=== PATIENT | male | born 1960 | race Caucasian/White ===

== ENCOUNTER → 2019-03-01 | Outpatient (CLI) | payer BC | END | disposition home or self-care (01) | LOC: LABWHC1 10:54 | PROVIDERS: ATTEND Urology | DX: R97.20 Elevated prostate specific antigen [PSA] (principal) | CPT/HCPCS: 36415; 84153 ==

== ENCOUNTER → 2019-03-06 | Outpatient (CLI) | payer BC ==
--- NOTE | 2019-03-06 23:01 | CTL ---
EXAMINATION TYPE: CT Low Dose Lung DATE OF EXAM ORDERED: 03/06/2019 HISTORY: 58-year-old male Personal history of tobacco use . Lung cancer screening CT DLP: 89.[address] CTDI: 2.60 mGy Automated exposure control for dose reduction was used. SCREENING VISIT: Baseline COMPARISON: None TECHNIQUE: Low dose computed tomography scan was performed through the chest at 1 mm thick sections a nd reconstructed images in the coronal/sagittal plane. Additional coronal MIP reconstruction performe d. CT DIAGNOSTIC QUALITY: Satisfactory FINDINGS: Heart normal size with small anterior basilar pericardial fluid. Borderline ectasia aortic root at 3.5 cm. Conventional arch vessel branching anatomy. No thoracic lymphadenopathy by CT size criteria. Scattered mild centrilobular emphysema. No consolidation or pleural effusion. Some strandy atelectasi s at the right midlung. Additional minimal strandy atelectasis inferior lingula. Visualized upper abdomen shows a 3.4 cm lateral right renal cyst only partially visualized. Bones: Mild to moderate multilevel degenerative disc disease. IMPRESSION: 1. Lung RADS 1 - negative. No suspicious pulmonary nodules. 2. Very mild emphysematous change. Scattered strandy areas of atelectasis. RECOMMENDATION: 1. Continue annual low-dose lung cancer screening CT. 2. Smoking cessation. FOLLOW UP CT CHEST RECOMMENDATION: [address] LUNG RAD: Lung-Rad 1 Negative
== END | disposition home or self-care (01) ==
LOC: RADCTMAIN 07:31
PROVIDERS: ATTEND Internal Medicine Hematology & Oncology
DX: J43.9 Emphysema, unspecified (principal); J98.11 Atelectasis; C7A.021 Malignant carcinoid tumor of the cecum; Z87.891 Personal history of nicotine dependence

== ENCOUNTER → 2020-02-14 | Outpatient (CLI) | payer BC ==
--- NOTE | 2020-02-14 13:46 | CT ---
EXAMINATION TYPE: CT ChestAbdPelvis w con DATE OF EXAM: 02/14/2020 COMPARISON: CT chest 03/06/2019 HISTORY: Carcinoid tumor. CT DLP: 642.7 mGycm Automated exposure control for dose reduction was used. CONTRAST: CT scan of the chest, abdomen and pelvis is performed with Oral Contrast and with IV Contrast, patien t injected with 100 mL of Isovue M300. FINDINGS: Small anterior abdominal wall hernia present and supraumbilical location containing fat. LUNGS: The lungs are grossly clear, there is no concerning parenchymal mass or nodule identified. T here is no pleural effusion or pneumothorax seen. The tracheobronchial tree is patent. MEDIASTINUM: There are no greater than 1 cm hilar or mediastinal lymph nodes. No pericardial effusi on is seen. AORTA: No significant abnormality is seen. OTHER: No additional significant abnormality is seen. LIVER/GB: No significant abnormality is appreciated. PANCREAS: No significant abnormality is seen. SPLEEN: No significant abnormality is seen. ADRENALS: No significant abnormality is seen. KIDNEYS: Cortical cyst is associated with the right kidney upper pole measuring approximately 3.5 cm in exophytic location laterally. REPRODUCTIVE ORGANS: Prostate shows some associated calcifications and is enlarged BOWEL: Thickening of the sigmoid colon likely due to muscular hypertrophy or lack of distention, the re is some diverticular change. Postop changes noted at the level of the cecum, there are surgical st aples present FREE AIR: No Free Air visible. ASCITES: None seen. RETROPERITONEAL ADENOPATHY: No retroperitoneal adenopathy is seen. LYMPH NODES: No greater than 1 cm abdominal or pelvic lymph nodes are appreciated. URINARY BLADDER: Thickened wall could be due to chronic bladder outlet obstruction, correlate to exc lude cystitis or graph PELVIC ADENOPATHY: None visualized. OSSEOUS STRUCTURES: No significant abnormality is seen. IMPRESSION: Postop changes, no recurrence evident, small anterior abdominal wall hernia, diverticulos is and findings in the sigmoid colon as described, correlate for bladder outlet obstruction.
== END | disposition home or self-care (01) ==
LOC: RADCTMAIN 09:39
DX: Z98.890 Other specified postprocedural states (principal); R97.20 Elevated prostate specific antigen [PSA]; C7A.021 Malignant carcinoid tumor of the cecum
CPT/HCPCS: 71260; 74177; Q9967 ×2